=== PATIENT | female | born 1960 | race Caucasian/White ===

== ENCOUNTER 2016-11-24 09:08 | Emergency (ER) | payer OTHER ==
--- NOTE | 2016-11-24 09:11 | EDPHY ---
H & P HPI/ROS: CHIEF COMPLAINT: Left ankle pain. HISTORY OF PRESENT ILLNESS: The patient is a 56-year-old female who presents with left ankle pain secondary to falling down a flight of stairs 2 hours ago. She denies numbness, weakness, or paresthesias in her toes. She denies knee or hip pain. She is able to move her toes normally. The fall was mechanical in nature and she denies preceding symptoms. She hit her head in the fall but did not lose consciousness and does not have a headache. REVIEW OF SYSTEMS: A 10 point review of systems was performed and is negative with the exception of the elements mentioned in the history of present illness. Source: Patient Exam Limitations: No limitations - Medical/Surgical History PMH: Denies. - Physical Exam Exam: General Appearance: Alert, no acute distress. BP 164/99. Head: Normocephalic atraumatic. Eyes: Pupils equal and round, no conjunctival injection, no discharge. ENT, Mouth: Mucous membranes are moist, no oropharyngeal erythema or edema. No hemotympanum. Neck: nontender to palpation over the cervical spine in the midline. Full active range of motion of her neck without pain. Trachea midline. Respiratory: Lungs are clear to auscultation; no wheezes, rales, or rhonchi. Cardiovascular: Regular rate and rhythm; no murmur, rub, or gallop. Gastrointestinal: Abdomen is soft and nontender, no masses or organomegaly, bowel sounds normal. Skin: Warm and dry, no rashes, normal color. No laceration or abrasion over the injured ankle. Back: Nontender to palpation over the thoracolumbar spine. Extremities: Swelling over the left medial malleolus. She is able to wiggle her toes. Pulses: 2+ dorsalis pedis pulse on the left. Neurological: Alert and oriented. Moving all four extremities easily and equally but unable to move her left ankle without pain. Cranial nerves II through XII are examined and are intact (visual acuity not tested). Sensation is intact to light touch over all 4 extremities. 5/5 bilateral upper extremity strength, 5/5 right lower extremity strength. Psychiatric: Normal affect. Constitutional: Initial Vital Signs Temperature (C) 36.6 C 11/24/16 09:18 Heart Rate 55 L 11/24/16 09:18 Respiratory Rate 18 11/24/16 09:18 Blood Pressure 164/99 H 11/24/16 09:18 O2 Sat (%) 97 11/24/16 09:18 O2 Delivery Mode Room Air O2 (L/minute) 8 Allergies/Adverse Reactions: codeine Allergy (Verified 11/24/16 09:18) Sulfa (Sulfonamide Antibiotics) Allergy (Verified 11/24/16 09:18) Home Medications: Medication Instructions Recorded Hydrocodone/APAP 5/325 [Bouse 1 - 2 tab PO Q4 PRN #10 tab 11/24/16 5/325 (RX)] Medical Decision Making - Diagnostics Imaging Results: Imaging Impressions Ankle X-Ray 11/24/16 09:09 Impression: 1. Trimalleolar type fracture involving distal shaft of the fibula, medial malleolus, and posterior malleolus of the distal tibia with lateral displacement of the talus. Ankle X-Ray 11/24/16 11:21 Impression: Near-anatomic reduction of trimalleolar fracture now in fiberglass splint. Imaging: I viewed and interpreted images myself Procedures: Procedure: Splint placement. An Orthoglass splint was applied to the left ankle. After application of the splint I returned and re-examined the patient. The splint was adequately immobilizing the joint and distal to the splint the patient's circulation and sensation was intact. Procedure: Conscious sedation. Indication: Ankle reduction The patient is an appropriate candidate to tolerate procedural sedation. The patient's vitals signs and mental status are appropriate. The risks, benefits and alternatives of the sedation were discussed with the patient. The patient is ASA classification 1. The patient's Mallampati airway score was 3 and the patient did meet the 3-3-2 airway measurements. A time out was completed. The patient was sedated with 80mg IV Propofol. The patient was monitored with continuous pulse oximetry, pizza delivery and end tidal CO2. There were no complications and no significant hypoxemia. I performed both the sedation and the procedure. The total time I spent at the bedside during the procedural sedation was 15 minutes. The patient was examined after the procedural sedation and has returned to her pre-sedation baseline with normal vital signs and a normal examination. Procedure: Reduction of Fracture of Ankle IV established. O2 administered. Placed on pulse oximeter and ETCO2 monitor. Neurovascular exam intact pre-procedure. Given 80mg IV Propofol for sedation. The left trimalleolar was reduced using traction and manipulation. Reassessed post-procedure. Neurovascular status intact--normal Motor and sensory exam. Exam indicated reduction. Confirmed reduction on X-ray. Splint applied by tech. The procedure was performed by myself. ED Course/Re-evaluation: 56-year-old female presents with ankle pain after falling down stairs this morning. She is neurovascularly intact distally and is able to move her toes normally. Left ankle x-ray ordered. I independently reviewed the patient's ankle x-ray on the PACS system. My interpretation: trimalleolar fracture. 0942: Reassessed patient. Discussed results of x-rays. Splint applied by tach. 0948: Consulted with [facility]. They will arrange hospitalization and transport for the patient. I discussed the plan with the patient. She would prefer to go by private vehicle and her boyfriend is here to drive her. I offered pain medication medication but she declined. 1015: Consulted with [facility]. 1036: Consulted with orthopedics. They will not operate today. Therefore, I will perform reduction and resplint. She has remained neurovascularly intact throughout her stay thus far. She has not wanted pain medication. An IV was established and arrangements are made for procedural sedation.. 1121: Reduction completed (see procedure notes for details). Post-reduction x- ray ordered. Postreduction x-ray shows improvement. She was able to crutch walk, nonweightbearing. She is discharged home and will follow up with [facility]. No other significant injuries have been found. She was serially examined during her stay in the emergency department. At 1 point she complained of some pain in her right small finger. She had bruising over the right PIP. She had full active range of motion of this finger, painless. She declines x-ray. She has also reported low right-sided lumbar back pain. No numbness or weakness. On reexamination she has no thoracolumbar tenderness and no step-off. No palpable muscle spasm in the lumbar paraspinous muscles. At no time of I have been concerned about possible concussion. Differential Diagnosis: I considered a differential diagnosis of traumatic injury that includes but is not limited to intracranial hemorrhage, skull fracture, concussion, vertebral injury, spinal cord injury, intrathoracic injury, intra-abdominal injury, long bone fractures, contusions, abrasions, and lacerations. - Data Points Medications Given: Discontinued Medications Acetaminophen (Tylenol) 500 mg PO EDNOW ONE Stop: 11/24/16 12:17 Last Admin: 11/24/16 12:34 Dose: 500 mg Ibuprofen (Motrin) 400 mg PO EDNOW ONE Stop: 11/24/16 12:17 Last Admin: 11/24/16 12:36 Dose: 400 mg Propofol (Diprivan) 80 mg IVP EDNOW ONE Stop: 11/24/16 11:05 Last Admin: 11/24/16 11:12 Dose: 40 mg Propofol (Diprivan) 40 mg IVP EDNOW ONE Stop: 11/24/16 11:32 Last Admin: 11/24/16 11:15 Dose: 40 mg Departure - Departure Disposition: Home, Routine, Self-Care Clinical Impression: Closed left ankle fracture Qualifiers: Encounter type: initial encounter Qualified Code(s): S82.892A - Other fracture of left lower leg, initial encounter for closed fracture Condition: Good Instructions: Ankle Fracture (ED), Crutch Instructions (ED), RICE Therapy (ED) Additional Instructions: Call [facility] today to set up a follow up appointment. The orthopedic surgeons will probably not want you to take ibuprofen. You can double check with them about this. I am recommending Tylenol. I am giving a prescription for small quantity of Vicodin. Each tablet contains hydrocodone 5 mg and Tylenol 325 mg. You should not take more than 3000 mg of Tylenol in a 24 hour stretch. Return for any serious worsening of condition. Referrals: [facility] [Provider Group] - As per Instructions Prescriptions: Hydrocodone/APAP 5/325 [Bouse 5/325 (RX)] 1 - 2 tab PO Q4 PRN #10 tab PRN Reason: pain Report Scribed for: Tammie Hirsch Report Scribed by: Bernardo Childers Date of Report: 11/24/16 Time of Report: 09:27 Physician Review and Approval Statement: 11/24/16 09:16 Portions of this note were transcribed by the medical instructor. I, Dr. Tammie Hirsch, personally performed the history, physical exam, and medical decision- making; and confirmed the accuracy of the information in the transcribed note.
[2016-11-24 09:23] VITALS: TEMP 97.9
[2016-11-24] MEDS ORDERED: NS 1,000 ML IV ONE (11:00)
[2016-11-24] MEDS ORDERED: PROPOFOL 200 MG/20 ML VIAL IVP ONE ×2 (11:04→11:31)
[2016-11-24] MEDS ORDERED: ACETAMINOPHEN 500 MG TAB PO ONE (12:16)
[2016-11-24] MEDS ORDERED: IBUPROFEN 200 MG TAB PO ONE (12:16)
[2016-11-24 13:09] VITALS: BP 160/85; PULSE 59; RESP 16; O2SAT 98
== END 2016-11-24 12:57 | disposition home or self-care (01) ==
LOC: CED 09:08
DX: S82.852A Displaced trimalleolar fracture of left lower leg, initial encounter for closed fracture (principal); W10.8XXA Fall (on) (from) other stairs and steps, initial encounter
CPT/HCPCS: 73610-PO; J2704